=== PATIENT | male | born 1975 | race Caucasian/White ===

== ENCOUNTER 2020-01-14 17:35 | Emergency (ER) | payer BC ==
[2020-01-14] MEDS ORDERED: IBUPROFEN 600 MG TABLET (FP) PO ONE ×2 (17:44→18:35)
[2020-01-14 17:46] VITALS: BP 130/83; PULSE 82; TEMP 98.9; BMI 27.2
== END 2020-01-14 19:52 | disposition home or self-care (01) ==
LOC: JERFT 17:35 → JER 17:35 → JERFT 19:52
DX: M25.561 Pain in right knee (principal)
CPT/HCPCS: 73562-TC-RT-FY; 99283-25

== ENCOUNTER 2020-04-10 06:13 | Day surgery (SDC) | payer BC ==
[2020-04-10 06:31] VITALS: BMI 29.7
[2020-04-10] MEDS ORDERED: DEXAMETHASONE SOD PHOSPHATE 10 MG/1 ML VIAL ONE (11:50)
[2020-04-10] MEDS ORDERED: MIDAZOLAM HCL 2 MG/2 ML SINGLE DOSE VIAL ONE (11:51)
[2020-04-10] MEDS ORDERED: BUPIVACAINE HCL/PF 0.5% (5 MG/ML) 30 ML VIAL IJ ONE (11:51)
[2020-04-10] MEDS ORDERED: PROPOFOL 20 ML ONE ×2 (12:12)
[2020-04-10] MEDS ORDERED: DEXAMETHASONE SOD PHOSPHATE 4 MG/1 ML VIAL ONE (12:26)
[2020-04-10] MEDS ORDERED: ceFAZolin SODIUM 1 GM VIAL ONE (12:26)
[2020-04-10] MEDS ORDERED: TRANEXAMIC ACID 1000 MG/10 ML VIAL ONE (12:26)
[2020-04-10] MEDS ORDERED: ONDANSETRON 4 MG/2 ML VIAL ONE (12:26)
[2020-04-10] MEDS ORDERED: SUCCINYLCHOLINE CHLORIDE 200 MG/10 ML SYRINGE ONE (12:26)
[2020-04-10] MEDS ORDERED: oxyCODONE HCL 5 MG TABLET PO PRN (14:33)
[2020-04-10] MEDS ORDERED: ONDANSETRON 4 MG/2 ML VIAL IVPUSH PRN (14:33)
[2020-04-10] MEDS ORDERED: LACTATED RINGERS SOLUTION 1,000 ML IV SCH (14:45)
[2020-04-10 15:34] VITALS: TEMP 97.9
[2020-04-10 17:17] VITALS: BP 127/64; PULSE 90
== END 2020-04-10 17:19 | disposition home or self-care (01) ==
LOC: FASU 06:13
PROVIDERS: ATTEND Orthopaedic Surgery Sports Medicine
PROC: 0SBC4ZZ Excision of Right Knee Joint, Percutaneous Endoscopic Approach (ICD-10-PCS; 2020-04-10)
PROC: 0SBC4ZZ Excision of Right Knee Joint, Percutaneous Endoscopic Approach (ICD-10-PCS; 2020-04-10)
PROC: 0MRN4KZ Replacement of Right Knee Bursa and Ligament with Nonautologous Tissue Substitute, Percutaneous Endoscopic Approach (ICD-10-PCS; principal; 2020-04-10 12:48)
DX: S83.511A Sprain of anterior cruciate ligament of right knee, initial encounter (principal); S83.281A Other tear of lateral meniscus, current injury, right knee, initial encounter; S83.241A Other tear of medial meniscus, current injury, right knee, initial encounter; X58.XXXA Exposure to other specified factors, initial encounter; Y93.9 Activity, unspecified; Y92.89 Other specified places as the place of occurrence of the external cause; Y99.9 Unspecified external cause status
CPT/HCPCS: 29880; 29888; C1713; 88304-TC; 94760; J1100

== ENCOUNTER 2022-10-21 21:21 | Emergency (ER) | payer BC ==
[2022-10-21 21:26] VITALS: BP 105/65; PULSE 65; RESP 20; TEMP 98.2; BMI 32.1
[2022-10-21] MEDS ORDERED: diazePAM 5 MG TABLET PO ONE (22:51)
[2022-10-21] MEDS ORDERED: KETOROLAC TROMETHAMINE 15 MG/ML VIAL IVPUSH ONE (22:51)
[2022-10-21] MEDS ORDERED: diazePAM 5 MG TABLET ONE (23:12)
[2022-10-21] MEDS ORDERED: KETOROLAC TROMETHAMINE 60 MG/2 ML VIAL ONE (23:12)
== END 2022-10-22 01:46 | disposition home or self-care (01) ==
LOC: JER 21:21 → JERFT 21:21 → JER 10-22 01:46
PROC: 3E0333Z Introduction of Anti-inflammatory into Peripheral Vein, Percutaneous Approach (ICD-10-PCS; principal; 2022-10-21)
DX: M25.512 Pain in left shoulder (principal); M54.2 Cervicalgia; R20.0 Anesthesia of skin; R20.2 Paresthesia of skin
CPT/HCPCS: 72125-TC; 73030-TC-LT-FY; 99284-25

== ENCOUNTER 2024-01-03 20:52 | Emergency (ER) | payer BC ==
[2024-01-03 20:59] VITALS: BP 120/81; PULSE 70; RESP 20; TEMP 98.1; BMI 30.5
[2024-01-03] MEDS ORDERED: LIDOCAINE 2.5%/PRILOCAINE 2.5% (5 Gram/TUBE) TP ONE (21:53)
[2024-01-03] MEDS: LIDOCAINE 2.5%/PRILOCAINE 2.5% 30 GRAM TUBE TP ONE (22:09)
== END 2024-01-03 22:39 | disposition home or self-care (01) ==
LOC: JER 20:52
DX: K60.2 Anal fissure, unspecified (principal); L30.4 Erythema intertrigo
CPT/HCPCS: 99283-25

== ENCOUNTER 2024-01-11 17:51 | Emergency (ER) | payer BC ==
[2024-01-11 18:06] VITALS: BP 110/72; PULSE 75; RESP 16; TEMP 98.5; BMI 28.1
[2024-01-11] MEDS ORDERED: CEPHALEXIN MONOHYDRATE 500 MG CAPSULE (UD) ONE (19:27)
[2024-01-11] MEDS: CEPHALEXIN MONOHYDRATE 500 MG CAPSULE (UD) PO ONE (19:34)
[2024-01-11 21:36] LABS: HIV INTERPRETATION NEGATIVE (NEGATIVE)
== END 2024-01-11 19:46 | disposition home or self-care (01) ==
LOC: JER 17:51
DX: L08.82 Omphalitis not of newborn (principal)
CPT/HCPCS: 36415; 86803; 87070; 87205; 87389; 99283-25